=== PATIENT | female | born 1990 | race African-American/Black ===

== ENCOUNTER 2022-03-24 05:50 | Emergency (ER) | payer OTHER, MEDICAID ==
[~2022-03-24] VITALS: Ht 165.1 cm; Wt 100.0 kg
[~2022-03-24 05:50] MED LIST: FERR-43 PO; PREN-88 PO
[2022-03-24] MEDS ORDERED: KETOROLAC 30MG/ML VIAL IM ONE (07:00)
[2022-03-24 07:05] VITALS: BP 141/89
[2022-03-24] MEDS ORDERED: CYCL10TA21 MT (11:49)
[2022-03-24] MEDS ORDERED: NAP5EC MT (11:49)
== END 2022-03-24 12:25 | disposition home or self-care (01) ==
LOC: ER 05:50
DX: M54.9 Dorsalgia, unspecified (principal)
CPT/HCPCS: 71045; 96372; 99283; J1885